=== PATIENT | female | born 1970 | race African-American/Black ===

== ENCOUNTER → 2016-10-19 | Outpatient (CLI) | payer OTHER ==
[2016-02-24 06:55] VITALS: BP 129/78
[~2016-10-19] MED LIST: CYCL10TA2 PO; Hydrocodone/Acetaminophen PO; NORE0.3510 PO; OMEP40CA5 PO; POLY17PO3 PO; POTA10CA PO; WARF10TA PO
--- NOTE | 2016-10-19 10:31 | RAD ---
EXAM: Lumbar spine, 3 views. HISTORY: Pain. COMPARISON: 11/04/2015. FINDINGS: Frontal and lateral and coned sacral views of the lumbar spine are obtained. There are suspected hypoplastic T12 ribs. Based on this numbering system, there is a sacralized L5 segment or lumbarized S1 segment with 4 lumbar vertebral bodies. There is no listhesis. The vertebral bodies are normal in height and the disc spaces are preserved. IMPRESSION: 1. No acute osseous finding. 2. Transitional lumbosacral segment.
== END | disposition home or self-care (01) ==
LOC: RAD 09:32
PROVIDERS: ATTEND Surgery
DX: M54.9 Dorsalgia, unspecified (principal); F81.9 Developmental disorder of scholastic skills, unspecified
CPT/HCPCS: 72100

== ENCOUNTER 2017-05-24 10:25 | Emergency (ER) | payer OTHER ==
[~2017-05-24] VITALS: Ht 167.6 cm; Wt 95.3 kg
[~2017-05-24 10:25] MED LIST changes: -POTA10CA PO; +POTASSIUM CHLO10 MEQ PO; -WARF10TA PO; +WARF10TA45 PO
[2017-05-24 11:03] LABS: BILIRUBIN,URINE NEGATIVE (NEG); GLUCOSE,URINE NEGATIVE (NEG); NITRITE,URINE NEGATIVE (NEG); PROTEIN,URINE NEGATIVE (NEG-TRACE); UROBILINOGEN,URINE 0.2 mg/dL (0.2 mg/dL)
--- NOTE | 2017-05-24 11:08 | RAD ---
Chest, 2 views, 05/24/2017: History: Shoulder and arm pain The heart size and pulmonary vascularity are normal. A calcified granuloma is again noted in the left base. No acute infiltrates are seen. There is no evidence of pleural fluid. IMPRESSION: No acute cardiopulmonary abnormality is detected. Right shoulder, 05/24/2017: No fracture or dislocation is identified. No destructive bony lesion is seen. The periarticular soft tissues are unremarkable. IMPRESSION: No acute right shoulder abnormality is detected.
[2017-05-24] MEDS ORDERED: ASPIRIN 325 MG TABLET PO ONE (11:15)
[2017-05-24 11:17] LABS: BARBITURATES NEG (NEG); BENZODIAZEPINES NEG (NEG); CANNABINOIDS NEG (NEG); COCAINE NEG (NEG); METHADONE NEG (NEG); OPIATES NEG (NEG); PHENCYCLIDINE NEG (NEG)
[2017-05-24 11:21] LABS: RBC,URINE RARE /HPF (0-2); WBC,URINE OCC /HPF (0-4)
[2017-05-24 11:22] LABS: BACTERIA,URINE FEW /HPF (0-FEW); SQUAMOUS EPITHELIAL CELL,UR FEW /LPF
--- NOTE | 2017-05-24 11:22 | PHYS DOC ---
Past Medical History Past Medical History: No Pertinent History, GERD Past Surgical History: Hysterectomy Alcohol Use: None Drug Use: None Adult General Chief Complaint Chief Complaint: SHOULDER INJURY HPI HPI Patient is a 47 year old female with a history of acid reflux who presents today with moderate right shoulder pain radiating into the right humerus that woke her up at 3 AM this morning. Patient states the pain is worse on abduction and range of motion. Patient denies any chest pain or shortness of breath. Denies any fever coughing or congestion. PCP Dr. Shahid Tan Review of Systems Review of Systems Constitutional: Denies fever or chills [] Eyes: Denies change in visual acuity, redness, or eye pain [] HENT: Denies nasal congestion or sore throat [] Respiratory: Denies cough or shortness of breath [] Cardiovascular: No additional information not addressed in HPI [] GI: Denies abdominal pain, nausea, vomiting, bloody stools or diarrhea [] : Denies dysuria or hematuria [] Musculoskeletal: Right shoulder pain Integument: Denies rash or skin lesions [] Neurologic: Denies headache, focal weakness or sensory changes [] Endocrine: Denies polyuria or polydipsia [] Current Medications Current Medications Current Medications Medications (Trade) Dose Ordered Sig/Zach Start Time Stop Time Status Last Admin Dose Admin Aspirin (Мария Aspirin) 325 mg 1X ONCE 05/24/17 11:15 05/24/17 11:16 DC 05/24/17 11:02 325 MG Allergies Allergies Allergies Coded Allergies Type Severity Reaction Last Updated Verified levofloxacin Adverse Reaction Intermediate Nausea and Vomiting 02/23/16 Yes Physical Exam Physical Exam Constitutional: Well developed, well nourished, no acute distress, non-toxic appearance. [] HENT: Normocephalic, atraumatic, bilateral external ears normal, oropharynx moist, no oral exudates, nose normal. [] Eyes: PERRLA, EOMI, conjunctiva normal, no discharge. [] Neck: Normal range of motion, no tenderness, supple, no stridor. [] Cardiovascular:Heart rate regular rhythm, no murmur [] Lungs & Thorax: Bilateral breath sounds clear to auscultation [] Abdomen: Bowel sounds normal, soft, no tenderness, no masses, no pulsatile masses. [] Skin: Warm, dry, no erythema, no rash. [] Back: No tenderness, no CVA tenderness. [] Extremities: Right shoulder with no obvious deformity. No tenderness on palpation of the shoulder. Limited abduction of the right shoulder. Patient unable to take the right shoulder through full range of motion due to pain. +2 right radial pulse. Cap refill less than 2 seconds the right fingers. Sensation intact to the right upper extremity. Neurologic: Alert and oriented X 3, normal motor function, normal sensory function, no focal deficits noted. [] Psychologic: Affect normal, judgement normal, mood normal. [] Current Patient Data Vital Signs Vital Signs Date Time Temp Pulse Resp B/P (MAP) Pulse Ox O2 Delivery O2 Flow Rate FiO2 05/24/17 11:18 71 14 146/82 (103) 99 Room Air 05/24/17 10:30 98.8 98.8 Lab Values Laboratory Tests Test 05/24/17 09:40 05/24/17 11:14 Urine Collection Type Void Urine Color Yellow Urine Clarity Clear Urine pH 6.0 Urine Specific [place] 1.025 Urine Protein Negative mg/dL (NEG-TRACE) Urine Glucose (UA) Negative mg/dL (NEG) Urine Ketones (Stick) Negative mg/dL (NEG) Urine Blood Negative (NEG) Urine Nitrite Negative (NEG) Urine Bilirubin Negative (NEG) Urine Urobilinogen Dipstick 0.2 mg/dL (0.2 mg/dL) Urine Leukocyte Esterase Negative (NEG) Urine RBC Rare /HPF (0-2) Urine WBC Occ /HPF (0-4) Urine Squamous Epithelial Cells Few /LPF Urine Bacteria Few /HPF (0-FEW) Urine Mucus Slight /LPF Urine Opiates Screen Neg (NEG) Urine Methadone Screen Neg (NEG) Urine Barbiturates Neg (NEG) Urine Phencyclidine Screen Neg (NEG) Urine Amphetamine/Methamphetamine Neg (NEG) Urine Benzodiazepines Screen Neg (NEG) Urine Cocaine Screen Neg (NEG) Urine Cannabinoids Screen Neg (NEG) Urine Ethyl Alcohol Neg (NEG) White Blood Count 9.9 x10^3/uL (4.0-11.0) Red Blood Count 4.56 x10^6/uL (3.50-5.40) Hemoglobin 13.9 g/dL (12.0-15.5) Hematocrit 41.0 % (36.0-47.0) Mean Corpuscular Volume 90 fL (79-100) Mean Corpuscular Hemoglobin 31 pg (25-35) Mean Corpuscular Hemoglobin Concent 34 g/dL (31-37) Red Cell Distribution Width 13.5 % (11.5-14.5) Platelet Count 221 x10^3/uL (140-400) Neutrophils (%) (Auto) 73 % (31-73) Lymphocytes (%) (Auto) 21 % (24-48) L Monocytes (%) (Auto) 5 % (0-9) Eosinophils (%) (Auto) 1 % (0-3) Basophils (%) (Auto) 0 % (0-3) Neutrophils # (Auto) 7.2 x10^3uL (1.8-7.7) Lymphocytes # (Auto) 2.1 x10^3/uL (1.0-4.8) Monocytes # (Auto) 0.5 x10^3/uL (0.0-1.1) Eosinophils # (Auto) 0.1 x10^3/uL (0.0-0.7) Basophils # (Auto) 0.0 x10^3/uL (0.0-0.2) Prothrombin Time 13.4 SEC (11.7-14.0) Prothrombin Time INR 1.1 (0.8-1.1) PTT 32 SEC (24-38) Sodium Level 145 mmol/L (136-145) Potassium Level 3.4 mmol/L (3.5-5.1) L Chloride Level 107 mmol/L (98-107) Carbon Dioxide Level 28 mmol/L (21-32) Anion Gap 10 (6-14) Blood Urea Nitrogen 13 mg/dL (7-20) Creatinine 0.8 mg/dL (0.6-1.0) Estimated GFR (Cockcroft-Gault) 92.2 Glucose Level 105 mg/dL (70-99) H Calcium Level 9.1 mg/dL (8.5-10.1) Magnesium Level 2.0 mg/dL (1.8-2.4) Creatine Kinase 265 U/L (26-192) H Creatine Kinase MB (Mass) 1.4 ng/mL (0.0-3.6) Creatine Kinase MB Relative Index 0.5 % (0-4) Troponin I Quantitative < 0.017 ng/mL (0.000-0.055) XF-Xge-N-Type Natriuretic Peptide 136 pg/mL (0-124) H Ethyl Alcohol Level < 10 mg/dL (0-10) Laboratory Tests 05/24/17 11:14 Laboratory Tests 05/24/17 11:14 EKG EKG 11:[address] Espinoza, sinus rhythm, heart rate 79, no STEMI [] Radiology/Procedures Radiology/Procedures []PROCEDURE: CHEST PA & LATERAL; SHOULDER 2+V RIGHT Chest, 2 views, 05/24/2017: History: Shoulder and arm pain The heart size and pulmonary vascularity are normal. A calcified granuloma is again noted in the left base. No acute infiltrates are seen. There is no evidence of pleural fluid. IMPRESSION: No acute cardiopulmonary abnormality is detected. Right shoulder, 05/24/2017: No fracture or dislocation is identified. No destructive bony lesion is seen. The periarticular soft tissues are unremarkable. IMPRESSION: No acute right shoulder abnormality is detected. DICTATED and SIGNED BY: MARIZOL PETE MD DATE: 05/24/17 1109 CC: RASHIDA LAIRD APRN; BERNARDO STONER MD ~ Course & Med Decision Making Course & Med Decision Making Pertinent Labs and Imaging studies reviewed. (See chart for details) Patient is in the ED with right shoulder pain that began this morning at 3 AM. Pain appears musculoskeletal. We did a cardiac workup just to be on the safe side cardiac bay. Chest x-ray interpreted by radiologist was negative for any acute findings, right shoulder x-rays interpreted by radiologist were negative for any acute findings. Patient's workup was negative for any acute findings. I highly suspect she has tendinitis of the right shoulder. She was discharged with Valium diclofenac and Medrol dosepak. Provided orthopedic doctor for follow-up in 1-2 weeks. Dragon Disclaimer Dragon Disclaimer This electronic medical record was generated, in whole or in part, using a voice recognition dictation system. Departure Departure Impression: Primary Impression: Tendinitis of right shoulder Disposition: 01 HOME, SELF-CARE Condition: STABLE Referrals: BERNARDO STONER MD (PCP) Follow-up with your doctor the provided orthopedic doctor in 3-7 days if pain continues TERRY HYDE II, MD Follow-up in one week if pain continues Patient Instructions: Biceps Tendon Tendinitis (Distal) with Rehab-SportsMed Additional Instructions: You were seen for tendinitis of the right shoulder. You can apply ice to the affected area. You can try to elevate the affected extremity. Take the prescribed pain medicine as ordered. Follow-up with the provided orthopedic doctor your own doctor in one week if symptoms continue. Scripts Methylprednisolone (MEDROL) 4 Mg Tab.ds.pk 1 PKG PO UD, #1 PKG Prov: RASHIDA LAIRD APRN 05/24/17 Diazepam (VALIUM) 5 Mg Tablet 5 MG PO TID, #20 TAB Prov: RASHIDA LAIRD APRN 05/24/17 Diclofenac Sodium (DICLOFENAC SODIUM) 50 Mg Tablet. 1 TAB PO BID, #30 TAB 1 Refill Prov: RASHIDA LAIRD APRN 05/24/17 RASHIDA LAIRD APRN May 24, 2017 11:22
[2017-05-24 11:34] LABS: BASO % 0 % (0-3); EOS % 1 % (0-3); HEMOGLOBIN 13.9 g/dL (12.0-15.5); LYMPH # 2.1 x10^3/uL (1.0-4.8); LYMPH % 21 % (24-48); MEAN CORPUSCULAR HEMOGLOBIN 31 pg (25-35); MEAN CORPUSCULAR HGB CONC 34 g/dL (31-37); MEAN CORPUSCULAR VOLUME 90 fL (79-100); MONO % 5 % (0-9); NEUT % 73 % (31-73); PLATELET COUNT 221 x10^3/uL (140-400); RED BLOOD COUNT 4.56 x10^6/uL (3.50-5.40); RED CELL DISTRIBUTION WIDTH 13.5 % (11.5-14.5); WHITE BLOOD COUNT 9.9 x10^3/uL (4.0-11.0)
[2017-05-24 11:43] LABS: CALCIUM 9.1 mg/dL (8.5-10.1); CREATININE 0.8 mg/dL (0.6-1.0); GFR 92.2; POTASSIUM 3.4 mmol/L (3.5-5.1)
[2017-05-24 11:44] LABS: INR 1.1 (0.8-1.1); PROTHROMBIN TIME PATIENT 13.4 SEC (11.7-14.0)
[2017-05-24 11:50] LABS: CKMB MASS 1.4 ng/mL (0.0-3.6)
[2017-05-24] MEDS ORDERED: DICL50TA4 PO (12:26)
[2017-05-24] MEDS ORDERED: DIAZ5TAB PO (12:26)
[2017-05-24] MEDS ORDERED: METH4TAB2 PO (12:26)
[2017-05-24 12:45] VITALS: BP 167/83
--- NOTE | 2017-05-24 13:06 | EKG ---
[facility] [address] [place] [address] Test Date: 2017-05-24 Test Time: 11:03:03 Pat Name: MARILOU COLLINS Department: Room: Gender: F [place]: : 1970 Requested By: RASHIDA LAIRD Order Number: [id number] Reading MD: Janessa Gama Measurements Intervals [place] Rate: 79 P: -34 MA: 152 QRS: 21 QRSD: 86 T: 4 QT: 444 QTc: 516 Interpretive Statements SINUS RHYTHM INCOMPLETE RIGHT BUNDLE BRANCH BLOCK Electronically Signed On 05-25-2017 16:18:48 CDT by Janessa Gama
== END 2017-05-24 13:18 | disposition home or self-care (01) ==
LOC: ER 10:25
DX: M77.9 Enthesopathy, unspecified (principal); Z88.1 Allergy status to other antibiotic agents; K21.9 Gastro-esophageal reflux disease without esophagitis; Z90.710 Acquired absence of both cervix and uterus
CPT/HCPCS: 36415; 71020; 73030; 80048; 80307; 81001; 82553; 83735; 83880; 84484; 85025; 85610; 85730; 93005; 99285; G0480; G0479

== ENCOUNTER → 2017-06-12 | Outpatient (CLI) | payer OTHER ==
[2017-05-24 12:45] VITALS: BP 167/83
[~2017-06-12] MED LIST changes: +DIAZ5TAB PO; +DICL50TA4 PO; +METH4TAB2 PO
--- NOTE | 2017-06-12 16:46 | RAD ---
Indication chronic pain. AP oblique and lateral views of both knees were obtained. Views of the left knee appear normal. No acute finding is seen. Significant degenerative changes are not seen. There is no significant joint fluid. Views of the right knee also appear unremarkable showing no significant degenerative change and no acute finding. IMPRESSION: Normal plain films of the knees
== END | disposition home or self-care (01) ==
LOC: RAD 16:02
PROVIDERS: ATTEND Internal Medicine
DX: M25.562 Pain in left knee (principal); M25.561 Pain in right knee
CPT/HCPCS: 73562

== ENCOUNTER 2017-07-07 14:02 | Emergency (ER) | payer OTHER ==
[2017-07-07 14:09] VITALS: BP 151/96
--- NOTE | 2017-07-07 15:10 | RAD ---
Right knee 3 views. History: Right knee pain 3 views were taken of the right knee. There is no fracture. There is a joint effusion. There is no other osseous abnormality. Impression: 1. Joint effusion right knee without other acute osseous abnormalities.
--- NOTE | 2017-07-07 15:18 | PHYS DOC ---
Past Medical History Past Medical History: GERD Past Surgical History: Hysterectomy Alcohol Use: None Drug Use: None Adult General Chief Complaint Chief Complaint: [facility] HPI Patient is a 47 year old female presented female presents emergency department stating that she has having left shoulder pain and discomfort and right knee pain and discomfort. Patient denies any injury or trauma to the shoulder she states that she's been diagnosed with tendinitis in the shoulder. She does state that she followed up with her primary care physician in which no further radiological exams been provided. Patient states she has decreased range of motion with the shoulder. She also states that she has having right knee pain and discomfort which developed after waking up this morning. She states that she has been able to ambulate however she has increased pain with ambulation. Patient denies any numbness or tingling down into the lower extremity. There is no bruising or discoloration noted around the knee. Review of Systems Review of Systems Constitutional: Denies fever or chills [] Eyes: Denies change in visual acuity, redness, or eye pain [] HENT: Denies nasal congestion or sore throat [] Respiratory: Denies cough or shortness of breath [] Cardiovascular: No additional information not addressed in HPI [] GI: Denies abdominal pain, nausea, vomiting, bloody stools or diarrhea [] : Denies dysuria or hematuria [] Musculoskeletal: Denies back pain. Complaint of right shoulder, right knee pain Integument: Denies rash or skin lesions [] Neurologic: Denies headache, focal weakness or sensory changes [] Endocrine: Denies polyuria or polydipsia [] Allergies Allergies Allergies Coded Allergies Type Severity Reaction Last Updated Verified levofloxacin Adverse Reaction Intermediate Nausea and Vomiting 02/23/16 Yes Physical Exam Physical Exam Constitutional: Well developed, well nourished, no acute distress, non-toxic appearance. [] HENT: Normocephalic, atraumatic, bilateral external ears normal, oropharynx moist, no oral exudates, nose normal. [] Eyes: PERRLA, EOMI, conjunctiva normal, no discharge. [] Neck: Normal range of motion, no tenderness, supple, no stridor. [] Cardiovascular:Heart rate regular rhythm, no murmur [] Lungs & Thorax: Bilateral breath sounds clear to auscultation [] Abdomen: Bowel sounds normal, soft, no tenderness, no masses, no pulsatile masses. [] Skin: Warm, dry, no erythema, no rash. [] Extremities: Right shoulder, right knee tenderness, no cyanosis, no clubbing, ROM intact, no edema. Patient with decreased range of motion to the right shoulder. Peripheral pulses 2+ cap refill brisk less than 2 seconds. Patient with full range of motion noted with right knee. Minimal tenderness noted. No bruising or discoloration noted. Peripheral pulses 2 the right lower leg 2+ cap refill brisk less than 2 seconds. Neurologic: Alert and oriented X 3, normal motor function, normal sensory function, no focal deficits noted. [] Psychologic: Affect normal, judgement normal, mood normal. [] Current Patient Data Vital Signs Vital Signs Date Time Temp Pulse Resp B/P (MAP) Pulse Ox O2 Delivery O2 Flow Rate FiO2 07/07/17 14:09 99.2 105 18 98 Room Air 99.2 EKG EKG [] Radiology/Procedures Radiology/Procedures [][facility] [address] [facility] [address] IMAGING REPORT Signed PATIENT: MARILOU COLLINS ACCOUNT: [id number] : 1970 LOCATION: ER AGE: 47 SEX: F EXAM STATUS: REG ER ORD. PHYSICIAN: ZENAIDA NEW APRN REASON: right knee pain no injury PROCEDURE: KNEE RIGHT 3V Right knee 3 views. History: Right knee pain 3 views were taken of the right knee. There is no fracture. There is a joint effusion. There is no other osseous abnormality. Impression: 1. Joint effusion right knee without other acute osseous abnormalities. DICTATED and SIGNED BY: BRITNI JULIAN MD DATE: 07/07/17 1505 CC: ZENAIDA NEW APRN; NON,STAFF; BERNARDO STONER MD ~ Course & Med Decision Making Course & Med Decision Making Pertinent Labs and Imaging studies reviewed. (See chart for details) No x-rays was performed on the right shoulder and she has been very diagnosed with tendinitis. She has had no further injury. Patient did have x-rays completed of the right knee with no bony abnormalities noted however there was a joint effusion noted per radiology. Patient will be placed in an Christian wrap with recommendations to use Tylenol or ibuprofen for pain and discomfort ice packs elevation as much as possible. The provided provided with orthopedic name and number to follow up with. All questions and concerns have been answered at the patient's bedside. Patient agrees with discharge instructions, treatment regimens and follow-up recommendations. Also recommended that she follow-up with either her primary care physician or orthopedic in regards to her right shoulder. [] Dragon Disclaimer Dragon Disclaimer This electronic medical record was generated, in whole or in part, using a voice recognition dictation system. Departure Departure Impression: Primary Impression: Tendinitis of right shoulder Additional Impression: Effusion of knee joint right Disposition: 01 HOME, SELF-CARE Condition: STABLE Referrals: BERNARDO STONER MD (PCP) Patient Instructions: Knee Effusion, Knee Pain, [id number], Shoulder Pain, [id number] Additional Instructions: Activity as tolerated. Ice packs on 20 minutes off 20 minutes several times a day. Wear the Christian wrap around the right knee and today follow-up with orthopedic. Tylenol or ibuprofen for pain and discomfort. Elevation as much as possible. Follow-up with orthopedic in her primary care physician in the next 3-5 days. Return back to emergency prior signs symptoms of become worse. Scripts Prednisone (PREDNISONE) 20 Mg Tablet 40 MG PO DAILY for 7 Days, #14 TAB Prov: ZENAIDA NEW APRN 07/07/17 Problem Qualifiers ZENAIDA NEW APRN Jul 07, 2017 15:18
[2017-07-07] MEDS ORDERED: PRED20TA PO (15:26)
== END 2017-07-07 15:36 | disposition home or self-care (01) ==
LOC: ER 14:02
DX: M75.91 Shoulder lesion, unspecified, right shoulder (principal); M25.461 Effusion, right knee; K21.9 Gastro-esophageal reflux disease without esophagitis; Z90.710 Acquired absence of both cervix and uterus; Z88.1 Allergy status to other antibiotic agents
CPT/HCPCS: 73562; 99284-25

== ENCOUNTER → 2017-07-19 | Outpatient (CLI) | payer OTHER ==
[2017-07-07 14:09] VITALS: BP 151/96
[~2017-07-19] MED LIST changes: +PRED20TA PO
--- NOTE | 2017-07-19 15:40 | RAD ---
AP view of the bilateral knees 07/19/2017 2:00 AM Indication: Degenerative joint disease. Knee pain, chronic Comparison: Knee radiographs June 12, 2017. Findings: No fracture or dislocation is identified. There are a mild degenerative changes are noted including mild tibial spinous spurring bilaterally. Very mild narrowing of the bilateral medial compartment joint space is seen. No gross soft tissue changes are identified. Impression: Very mild degenerative changes of the bilateral knees.
== END | disposition home or self-care (01) ==
LOC: RAD 15:10
PROVIDERS: ATTEND Physical Medicine & Rehabilitation
DX: M17.0 Bilateral primary osteoarthritis of knee (principal)
CPT/HCPCS: 73565

== ENCOUNTER → 2017-09-17 | Outpatient (CLI) | payer BC ==
--- NOTE | 2017-09-17 16:26 | RAD ---
Indication: Atraumatic hand pain for 3 weeks. Technique: 3 views of each hand are submitted for review. No comparison is available. Findings: There is no fracture or dislocation. There is no soft tissue swelling. There is no osseous lesion. Impression: Negative for fracture.
== END | disposition home or self-care (01) ==
LOC: RAD 15:39
PROVIDERS: ATTEND Nurse Practitioner
DX: M79.641 Pain in right hand (principal); M79.642 Pain in left hand
CPT/HCPCS: 73130

== ENCOUNTER → 2017-10-01 | Outpatient (CLI) | payer BC ==
--- NOTE | 2017-10-01 16:08 | RAD ---
MR of the right knee Indication: Pain and buckling for 2 months. No known injury. Technique: The standard multiplanar sequences are obtained. Findings: Medial meniscus: Linear signal at the posterosuperior corner of the posterior horn compatible with a small peripheral tear. Lateral meniscus: Intact. Anterior cruciate ligament: Intact Posterior cruciate ligament: Intact Medial collateral ligament: Intact. Iliotibial band: Intact. Lateral collateral ligament: Intact Posterolateral corner: No internal derangement identified. Extensor mechanism: Intact. Fluid: Moderate joint effusion. Small Pérez's cyst with disorganized fluid above and below compatible with rupture. Articular cartilage -patellofemoral joint: Mild chondromalacia at the patella. There is also chondromalacia at the central and medial femoral trochlea. -medial compartment:Intact -lateral compartment: Moderate chondromalacia of the posterior lateral tibial plateau. Bones: No significant lesion or acute fracture. Soft tissue: Unremarkable Impression: 1. Peripheral tear of the posterior horn of the medial meniscus. 2. Small ruptured Pérez's cyst. 3. Primary osteoarthritis. Electronically signed by: Norris Bernal MD (10/01/2017 4:05 PM) [id number]
== END | disposition home or self-care (01) ==
LOC: MRI 14:25
PROVIDERS: ATTEND Internal Medicine
DX: S83.241A Other tear of medial meniscus, current injury, right knee, initial encounter (principal); M71.21 Synovial cyst of popliteal space [Baker], right knee; M17.11 Unilateral primary osteoarthritis, right knee; X58.XXXA Exposure to other specified factors, initial encounter; Y92.89 Other specified places as the place of occurrence of the external cause; Y93.89 Activity, other specified; Y99.8 Other external cause status
CPT/HCPCS: 73721

== ENCOUNTER → 2018-02-14 | Outpatient (CLI) | payer OTHER | END | disposition home or self-care (01) | LOC: RAD 15:51 | DX: M25.562 Pain in left knee (principal); M25.462 Effusion, left knee | CPT/HCPCS: 73562 ==

== ENCOUNTER → 2018-03-05 | Outpatient (CLI) | payer OTHER | END | disposition home or self-care (01) | LOC: KCIC MRI 15:58 | DX: S83.242A Other tear of medial meniscus, current injury, left knee, initial encounter (principal); S83.282A Other tear of lateral meniscus, current injury, left knee, initial encounter; M17.12 Unilateral primary osteoarthritis, left knee; M71.22 Synovial cyst of popliteal space [Baker], left knee; X58.XXXA Exposure to other specified factors, initial encounter; Y93.89 Activity, other specified; Y92.89 Other specified places as the place of occurrence of the external cause; Y99.8 Other external cause status | CPT/HCPCS: 73721 ==

== ENCOUNTER → 2018-05-06 | Outpatient (CLI) | payer OTHER | END | disposition home or self-care (01) | LOC: KCIC US 07:35 | DX: B18.1 Chronic viral hepatitis B without delta-agent (principal); K76.0 Fatty (change of) liver, not elsewhere classified; K83.8 Other specified diseases of biliary tract; I10 Essential (primary) hypertension; J45.909 Unspecified asthma, uncomplicated | CPT/HCPCS: 76700 ==

== ENCOUNTER → 2020-03-03 | Outpatient (CLI) | payer OTHER ==
[2018-09-26 15:50] VITALS: BP 167/92
[~2020-03-03] MED LIST changes: +IBUP-1007 PO; +OMEP40CA45 PO; -OMEP40CA5 PO; +ORPH100T PO; +POLY17PO28 PO; -POLY17PO3 PO; +POTA10TA12 PO; -POTASSIUM CHLO10 MEQ PO
--- NOTE | 2020-03-03 16:13 | RAD ---
EXAM: Left shoulder, 3 views; cervical spine, 6 views. HISTORY: Pain. COMPARISON: None. FINDINGS: Left shoulder: 3 views of the left shoulder obtained. There is no fracture, dislocation or subluxation. Cervical spine: 6 views of the cervical spine are obtained. There is degenerative endplate remodeling at C3-C4 and C4-C5. There is no significant listhesis. There is no fracture. IMPRESSION: 1. Degenerative change primarily at the upper and mid cervical levels. 2. No acute osseous finding. Electronically signed by: Faiza Hawthorne MD (03/03/2020 4:10 PM) [id number]
== END | disposition home or self-care (01) ==
LOC: RAD 15:12
PROVIDERS: ATTEND Internal Medicine
DX: M47.812 Spondylosis without myelopathy or radiculopathy, cervical region (principal)
CPT/HCPCS: 72050; 73030

== ENCOUNTER → 2021-03-15 | Outpatient (CLI) | payer BC ==
[2018-09-26 15:50] VITALS: BP 167/92
[~2021-03-15] VITALS: Ht 170.2 cm; Wt 105.2 kg
[~2021-03-15] MED LIST changes: -OMEP40CA45 PO; +OMEP40CA7 PO; -POLY17PO28 PO; +POLY17PO52 PO; +SINCALIDE 2.1 MCG in IV NORMAL SALINE 50ML 30 ML IV ONE
--- NOTE | 2021-03-15 08:26 | RAD ---
EXAMINATION: US ABDOMEN LIMITED INDICATION: 50 years, Female, nausea, epigastric pain.. COMPARISON: None TECHNIQUE: Grayscale, color Doppler and limited spectral Doppler images of the right upper quadrant w ere obtained. FINDINGS: LIVER: SIZE (LENGTH): 15.4 cm. ECHOGENICITY: Increased PARENCHYMA: Heterogeneous echotexture. No discrete focal lesion. INTRAHEPATIC BILE DUCTS: Nondilated. PORTAL VEIN: Patent with normal hepatopedal flow. GALLBLADDER: GALLBLADDER WALL THICKNESS: 2 mm MORPHOLOGY: Normal morphology. No wall hyperemia or pericholecystic free fluid. LUMEN: Biliary sludge. COMMON BILE DUCT DIAMETER: 0.8 cm RIGHT KIDNEY: MEASURES: 13.8 cm in length. MORPHOLOGY/PARENCHYMA: Normal corticomedullary differentiation with no shadowing calculus or discrete masses. COLLECTING SYSTEM: No hydronephrosis. PANCREAS: Not well-visualized. OTHER: RETROPERITONEUM, INFERIOR VENA CAVA: Normal caliber. AORTA: Not well-visualized. FLUID:No free fluid. IMPRESSION: Limited exam due to overlying bowel gas. 1. Severe diffuse hepatic steatosis. 2. Gallbladder sludge without sonographic evidence of acute cholecystitis. 3. Mildly dilated common bile duct measures up to 8 mm. No intrahepatic biliary ductal dilation. Dileep mmend correlation with liver function test and may consider MRCP, if clinically indicated for biliary obstruction. Electronically signed by: Kathy Frank MD (03/15/2021 8:24 AM) [id number]
--- NOTE | 2021-03-15 10:24 | RAD ---
EXAM: Nuclear hepatobiliary scan. HISTORY: Epigastric pain. TECHNIQUE: Following intravenous administration of 5.5 mCi Tc 99m Choletec, anterior images of the ab domen were obtained at five minute intervals through one hour. Subsequently, 2.1 mcg CCK was administ ered and additional images to assess gallbladder ejection fraction were obtained. FINDINGS: There is prompt radiotracer uptake by the liver. No focal defect is seen. There is normal e xcretion into the biliary tree. The gallbladder is visualized 10 sixty minutes and there is free flow into the duodenum. The gallbladder ejection fraction is 89 percent. IMPRESSION: High gallbladder ejection fraction of 89 percent. Electronically signed by: Faiza Hawthorne MD (03/15/2021 10:21 AM) [id number]
== END ==
LOC: US 13:19
PROVIDERS: ATTEND Internal Medicine Gastroenterology
DX: R10.13 Epigastric pain (principal); R10.2 Pelvic and perineal pain
CPT/HCPCS: 76705; 78227; A9537; J2805

== ENCOUNTER → 2021-07-18 | Outpatient (CLI) | payer BC ==
[2018-09-26 15:50] VITALS: BP 167/92
[~2021-07-18] MED LIST changes: -SINCALIDE 2.1 MCG in IV NORMAL SALINE 50ML 30 ML IV ONE
--- NOTE | 2021-07-18 16:35 | RAD ---
Bilateral digital screening 2-D and 3-D (digital breast tomosynthesis) mammogram: Reason for examination: Routine screening. Comparison: Mammogram from 01/28/2014. Interpretation was made with the benefit of CAD. FINDINGS: Breast density: Category B. There are scattered areas of fibroglandular density. No suspicious breast mass, malignant appearing calcifications, or architectural distortion is seen. IMPRESSION: No evidence of malignancy. Assessment: BI-RADS 1. Negative. Recommendation: Routine screening mammograms. The patient will receive a letter with the results in the mail. Patient information will be entered i nto the mammography reminder system with a target recall date for the next mammogram. A reminder geetha er will be generated. Electronically signed by: Elise Slaughter MD (07/18/2021 4:33 PM) [id number]
== END ==
LOC: MAMMO 15:18
PROVIDERS: ATTEND Internal Medicine
DX: Z12.31 Encounter for screening mammogram for malignant neoplasm of breast (principal)
CPT/HCPCS: 77063; 77067